=== PATIENT | female | born 1970 ===

== ENCOUNTER 2024-12-03 08:00 | Day surgery (SDC) | payer OTHER ==
[2024-12-01 10:30] LABS: BASO % 0.4 % (0.1-1.2); EOS # 0.22 (0.04-0.54); EOS % 1.9 % (0.7-7.0); LYMPH # 2.30 (1.18-3.74); LYMPH % 20.2 % (19.3-53.1); MEAN PLATELET VOLUME 9.80 fl (9.4-12.4); MONO # 0.72 (0.24-0.82); MONO % 6.3 % (4.7-12.5); NEUT # 8.06 (1.56-6.13); NEUT % 70.6 % (34.0-71.1); RED CELL DISTRIBUTION WIDTH 12.9 % (11.6-14.4)
[2024-12-01 10:31] VITALS: BP 110/63
[2024-12-01 10:32] LABS: URINE APPEARANCE Clear; URINE BILIRRUBIN Negative (NEGATIVE); URINE BLOOD Negative; URINE COLOR Yellow; URINE KETONE Negative (NEGATIVE); URINE LEUKOCYTE Negative; URINE NITRATE Negative; URINE PROTEIN Negative (NEGATIVE); URINE UROBILINOGEN 0.2 E.U./dl
[2024-12-01 10:37] LABS: URINE BACTERIA 290.2 uL (0.0-1933); URINE EPITHELIAL CELLS 5.0 uL (0.0-38.8); URINE RBC 12.7 uL (0.0-20.8); URINE WBC 4.4 uL (0.0-23.2)
[2024-12-01 11:04] LABS: URINE CAST 0.14 uL (0.0-1.40); URINE GLUCOSE >=1000 MG/DL (NEGATIVE)
[2024-12-01 11:14] LABS: INR 0.99
[2024-12-01 11:51] LABS: ALT/SGPT 26.0 U/L (12-78); AST/SGOT 12.0 U/L (15-37); BILIRUBIN TOTAL 0.44 mg/dL (0.3-1.2); BUN CREA RATIO 22.0 (7.0-25.0); CREATININE SERUM 0.59 mg/dL (0.55-1.02); GFR 106.62; GLOBULINA 3.8 G/DL (2.4-3.5); GLUCOSE FASTING 80.0 mg/dL (65-100); OSMOLALITY SERUM 282.0 MOSM/KG (275-295)
[~2024-12-03] VITALS: Ht 170.2 cm; Wt 113.4 kg
[~2024-12-03 08:00] MED LIST: ATORVASTATIN CA10 MG PO; LANTUS SOL100 UNIT/1; TRIJARDY XR 5-1 EACH PO
[2024-12-03] MEDS ORDERED: CEFAZOLIN SODIUM 1,000 MG VIAL ONE (08:51)
[2024-12-03] MEDS ORDERED: BACTRIM DS TAB1 EACH PO (10:23)
[2024-12-03] MEDS ORDERED: TYLENOL325 MG PO (10:23)
[2024-12-03] MEDS ORDERED: LIDOCAINE HCL 1%/EPINEPHRINE 20ML VIAL IJ ONE (10:34)
[2024-12-03] MEDS ORDERED: BUPIVACAINE HCL/MPF 0.5% 30ML VIAL ONE (10:34)
== END 2024-12-03 13:25 | disposition home or self-care (01) ==
LOC: CIR.AMB 08:00
PROVIDERS: ATTEND Surgery
DX: D17.1 Benign lipomatous neoplasm of skin and subcutaneous tissue of trunk (principal); D49.2 Neoplasm of unspecified behavior of bone, soft tissue, and skin